=== PATIENT | female | born 1965 | race African-American/Black ===

== ENCOUNTER 2017-09-17 22:24 | Emergency (ER) | payer SELFPAY ==
[~2017-09-17] VITALS: Ht 167.6 cm; Wt 77.1 kg
[2017-09-17 23:46] LABS: Basophils # (auto) 0.1 uL; Basophils % (auto) 0.7 % (0.0-2.0); Eosinophils # (auto) 0.1 uL; Eosinophils % (auto) 0.7 % (0.0-7.0); Hematocrit 36.8 % (36.0-46.0); Hemoglobin 12.2 g/dL (12.2-16.2); Lymphocytes # (auto) 1.4 uL; Lymphocytes % (auto) 14.5 % (10.0-50.0); Mean Corpuscular Hemoglobin 29.2 pg (28.0-32.0); Mean Corpuscular Hgb Conc. 33.1 g/dL (32.0-36.0); Mean Corpuscular Volume 88.2 fL (80.0-100.0); Monocytes # (auto) 0.6 uL; Monocytes % (auto) 6.1 % (0.0-12.0); Neutrophils # (auto) 7.5 uL; Nucleated Red Blood Cells % 0.1 %; Platelet Count (auto) 257 10^3/uL (140-450); Red Blood Cells 4.18 10^6/uL (4.0-5.20); White Blood Cell 9.6 10^3/uL (4.4-10.8)
[2017-09-18 00:02] LABS: Alanine Aminotransferase 21 U/L (13-56); Albumin 3.6 g/dL (3.4-5.0); Anion Gap 9 (5-15); Aspartate Aminotransferase 19 U/L (15-37); BUN/Creatinine Ratio 14.1; Blood Urea Nitrogen 11 mg/dL (7-18); Calcium 8.6 mg/dL (8.5-10.1); Carbon Dioxide 25 mmol/L (21-32); Chloride 105 mmol/L (98-107); GFR African American 100 mL/min; GFR Non-African American 83 mL/min; Glucose 97 mg/dL (74-106); Potassium 3.8 mmol/L (3.5-5.1); Sodium 139 mmol/L (136-145)
[2017-09-18 00:07] LABS: Alkaline Phosphatase 75 U/L (45-117); Bilirubin, Total 0.4 mg/dL (0.2-1.0); Total Protein 7.4 g/dL (6.4-8.2)
[2017-09-18] MEDS ORDERED: ASPirin 325 MG TAB PO ONE (04:15)
[2017-09-18] MEDS ORDERED: KETOROLAC TROMETH 30 MG/ML 1ML VIAL IV ONE (04:15)
[2017-09-18 05:35] VITALS: BP 106/67
== END 2017-09-18 06:12 | disposition home or self-care (01) ==
LOC: ER 22:24
DX: R07.89 Other chest pain (principal)
CPT/HCPCS: 36415; 71045; 80053; 83880; 84484; 85025; 93005; 96374; 99285; J1885

== ENCOUNTER 2019-06-23 06:01 | Emergency (ER) | payer BC, MEDICAID ==
[~2019-06-23] VITALS: Ht 167.6 cm; Wt 81.6 kg
[2019-06-23 06:10] VITALS: BP 128/85
== END 2019-06-23 07:47 | disposition home or self-care (01) ==
LOC: ER 06:01
DX: J33.9 Nasal polyp, unspecified (principal)

== ENCOUNTER 2020-04-22 07:27 | Emergency (ER) | payer MEDICAID, OTHER ==
[~2020-04-22] VITALS: Ht 170.2 cm; Wt 77.1 kg
[2020-04-22 07:55] VITALS: BP 148/81
[2020-04-22] MEDS ORDERED: methylPREDNISolone SOD SUCC 125 MG/2 ML VL IM ONE (08:30)
== END 2020-04-22 08:44 | disposition home or self-care (01) ==
LOC: ER 07:27
DX: S40.862A Insect bite (nonvenomous) of left upper arm, initial encounter (principal); S40.861A Insect bite (nonvenomous) of right upper arm, initial encounter; S00.86XA Insect bite (nonvenomous) of other part of head, initial encounter; W57.XXXA Bitten or stung by nonvenomous insect and other nonvenomous arthropods, initial encounter; Y93.89 Activity, other specified; Y92.89 Other specified places as the place of occurrence of the external cause; Y99.8 Other external cause status
CPT/HCPCS: 96372; 99283; J2930

== ENCOUNTER 2020-06-21 08:25 | Emergency (ER) | payer OTHER ==
[~2020-06-21] VITALS: Ht 167.6 cm; Wt 79.8 kg
[2020-06-21 09:00] VITALS: BP 117/86
[2020-06-21 09:44] LABS: Basophils # (auto) 0.1 10 ^3/uL (0-0.2); Basophils % (auto) 0.6 % (0.0-2.0); Eosinophils # (auto) 0.3 10 ^3/uL (0-0.8); Eosinophils % (auto) 3.2 % (0.0-7.0); Hemoglobin 13.5 g/dL (12.2-16.2); Lymphocytes # (auto) 2.4 10 ^3/uL (0.4-5.4); Lymphocytes % (auto) 23.3 % (10.0-50.0); Mean Corpuscular Hemoglobin 28.7 pg (28.0-32.0); Mean Corpuscular Hgb Conc. 32.9 g/dL (32.0-36.0); Mean Corpuscular Volume 87.3 fL (80.0-100.0); Monocytes # (auto) 0.6 10 ^3/uL (0-1.3); Monocytes % (auto) 6.1 % (0.0-12.0); Neutrophils # (auto) 6.9 10 ^3/uL (1.6-8.6); Neutrophils % (auto) 66.8 % (37.0-80.0); Platelet Count (auto) 283 10^3/uL (140-450); Red Cell Distribution Width 13.7 % (11.8-14.3); White Blood Cell 10.3 10^3/uL (4.4-10.8)
[2020-06-21 10:03] LABS: Alanine Aminotransferase 20 U/L (13-56); Albumin 3.2 g/dL (3.4-5.0); Anion Gap 2 (5-15); Blood Urea Nitrogen 14 mg/dL (7-18); Calcium 8.3 mg/dL (8.5-10.1); Carbon Dioxide 32 mmol/L (21-32); Chloride 103 mmol/L (98-107); Glucose 85 mg/dL (74-106); Magnesium 2.4 mg/dL (1.6-2.6); Potassium 3.9 mmol/L (3.5-5.1); Sodium 137 mmol/L (136-145)
[2020-06-21 10:08] LABS: Alkaline Phosphatase 69 U/L (45-117); Aspartate Aminotransferase 8 U/L (15-37); BUN/Creatinine Ratio 16.1; Bilirubin, Total 0.5 mg/dL (0.2-1.0); GFR African American 87 mL/min; GFR Non-African American 72 mL/min; Total Protein 7.3 g/dL (6.4-8.2)
== END 2020-06-21 11:49 | disposition left against medical advice (07) ==
LOC: ER 08:25
DX: S00.81XA Abrasion of other part of head, initial encounter (principal); R55 Syncope and collapse; R51.9 Headache, unspecified; J33.9 Nasal polyp, unspecified; W18.39XA Other fall on same level, initial encounter; Y93.89 Activity, other specified; Y92.89 Other specified places as the place of occurrence of the external cause; Y99.8 Other external cause status
CPT/HCPCS: 36415; 70450; 73130; 80053; 83735; 84484; 85025; 93005

== ENCOUNTER 2023-04-28 04:25 | Emergency (ER) | payer OTHER ==
[~2023-04-28] VITALS: Ht 167.6 cm; Wt 77.8 kg
[~2023-04-28 04:25] MED LIST: CEPH500C PO; NAPR-746 PO
[2023-04-28 06:26] VITALS: PULSE 94; RESP 20; TEMP 97.9; O2SAT 98
[2023-04-28] MEDS ORDERED: cefTRIAXone SODIUM 250 MG VL IM ONE (06:45)
[2023-04-28] MEDS ORDERED: AZITHROMYCIN 250 MG TAB PO ONE (06:45)
[2023-04-28 07:21] LABS: Urine Bacteria NONE SEEN /hpf (None Seen); Urine Blood Negative /uL (Negative); Urine Clarity Clear (Clear); Urine Color Yellow (Yellow); Urine Mucus FEW (None Seen); Urine Protein, UAD Negative (Negative); Urine Specific Gravity 1.023 (1.001-1.035); Urine Urobilinogen Normal (Negative); Urine WBC 4 /hpf (0 - 5)
[2023-04-28 08:22] LABS: Vaginal Bacteria None Seen; Vaginal Epithelial Cells Few; Vaginal Trichomonas Not Present
[2023-04-28 08:23] LABS: Vaginal Clue Cells Few
[2023-04-28] MEDS ORDERED: NITR-87 PO (08:48)
[2023-04-28] MEDS ORDERED: MET500T PO (08:48)
[2023-04-28] MEDS ORDERED: ACET500T58 PO (08:48)
[2023-04-28] MEDS ORDERED: CLIN2CRE7 VG (08:48)
[2023-04-29 23:06] LABS: Chlamydia Trachomatis, NAA Negative (Negative); Neisseria gonorrhoeae, NAA Negative (Negative)
== END 2023-04-28 08:49 | disposition home or self-care (01) ==
LOC: ER 04:25
DX: N39.0 Urinary tract infection, site not specified (principal); N76.0 Acute vaginitis; B96.89 Other specified bacterial agents as the cause of diseases classified elsewhere; Z79.899 Other long term (current) drug therapy
CPT/HCPCS: 81001; 81025; 87210; 87491; 87591; 96372; 99283; J0696

== ENCOUNTER 2024-02-29 11:09 | Emergency (ER) | payer OTHER ==
[~2024-02-29] VITALS: Ht 157.5 cm; Wt 70.0 kg
[~2024-02-29 11:09] MED LIST changes: +ACET500T58 PO; +CLIN2CRE7 VG; +MET500T PO; +NITR-87 PO
[2024-02-29 12:08] VITALS: BP 129/75; PULSE 74; RESP 16; TEMP 99.1; O2SAT 100
[2024-02-29] MEDS: IBUPROFEN 600 MG TAB PO ONE (12:32)
[2024-02-29] MEDS ORDERED: HYDR-4902 PO (12:56)
[2024-02-29] MEDS ORDERED: IBUP1TAB5 PO (12:56)
[2024-02-29] MEDS ORDERED: LIDO5DIS21 TOP (12:59)
== END 2024-02-29 13:07 | disposition home or self-care (01) ==
LOC: ER 11:09
DX: S32.029A Unspecified fracture of second lumbar vertebra, initial encounter for closed fracture (principal); Z79.899 Other long term (current) drug therapy; W18.39XA Other fall on same level, initial encounter; Y93.89 Activity, other specified; Y92.89 Other specified places as the place of occurrence of the external cause; Y99.8 Other external cause status
CPT/HCPCS: 72131